=== PATIENT | male | born 1935 | race Caucasian/White ===

== ENCOUNTER 2022-06-13 20:16 | Inpatient (IN) | payer OTHER ==
[~2022-06-13] VITALS: Ht 175.3 cm; Wt 60.8 kg
[2022-06-13 20:21] VITALS: BP_SYST 132
[2022-06-13 21:05] LABS: WHITE BLOOD COUNT (AUTO) 2.5 K/uL (4.8-10.8)
[2022-06-13 21:13] LABS: HEMOGLOBIN 7.6 g/dL (14.0-18.0); MEAN CORPUSCULAR HEMOGLOBIN 34 pg (27-31); MEAN CORPUSCULAR HGB CONC 35 % (32-36); MEAN CORPUSCULAR VOLUME 97 fL (79.0-98.0); PLATELET COUNT (AUTO) 192 K/uL (130-430); RED BLOOD CELL COUNT(AUTO) 2.28 MIL/uL (4.2-6.2); RED CELL DISTRIBUTION WIDTH 21.7 % (9.0-15.0)
[2022-06-13 21:33] LABS: ANION GAP 8 (5-15); CALCIUM 9.1 mg/dL (8.4-11.0); CHLORIDE 99 mmol/L (98-107); CREATININE 0.94 mg/dL (0.55-1.30); GLUCOSE 146 mg/dL (70-99); UREA NITROGEN, BLOOD 24 mg/dL (8-21)
[2022-06-13 21:45] LABS: ALANINE AMINOTRANSFERASE 29 U/L (12-78); ALBUMIN 2.3 g/dL (3.4-4.8); ASPARTATE AMINOTRANSFERASE 49 U/L (10-37); TOTAL BILIRUBIN 1.4 mg/dL (0.0-1.0)
[2022-06-13] MEDS ORDERED: iohexoL 350 mgI/mL, 100 ML INFUS..BTL IV ONE (21:58)
[2022-06-13] MEDS ORDERED: PIPERACILLIN/TAZO 3.375 GM in NS 50 ML IV ONE (22:00)
[2022-06-13 22:01] LABS: C-REACTIVE PROTEIN QUANT 32.2 mg/dL (0-0.5)
[2022-06-13] MEDS ORDERED: PIPERACILLIN/TAZOBACTAM 3.375 GM/VIAL (ZOSYN) IV ONE (22:11)
[2022-06-13 22:23] LABS: BAND % (MANUAL) 19 % (0-6); BASOPHILS % (MANUAL) 0 % (0-2); EOSINOPHILS % (MANUAL) 0 % (0-7); LYMPHOCYTES % (MANUAL) 11 % (20-46); MONOCYTES % (MANUAL) 14 % (0-11)
[2022-06-13] MEDS ORDERED: IPRATROPIUM/ALBUTEROL SULFATE 3 ML AMPUL.NEB (DUONEB) INH SCH (23:15)
[2022-06-13] MEDS ORDERED: ONDANSETRON HCL 4 MG/2 ML VIAL IVP PRN (23:15)
[2022-06-13] MEDS ORDERED: ACETAMINOPHEN 325 MG TABLET PO PRN (23:15)
[2022-06-13] MEDS ORDERED: IPRATROPIUM/ALBUTEROL SULFATE 3 ML AMPUL.NEB (DUONEB) INH PRN (23:15)
[2022-06-13] MEDS ORDERED: ACYC400T19 PO (23:25)
[2022-06-13] MEDS ORDERED: LEVO137T2 PO (23:25)
[2022-06-13] MEDS ORDERED: AMIO200T61 PO (23:25)
[2022-06-13] MEDS ORDERED: METO25TA6 PO (23:25)
[2022-06-13] MEDS ORDERED: RIVA20TA PO (23:26)
[2022-06-13] MEDS ORDERED: LETE480T PO (23:27)
[2022-06-13] MEDS ORDERED: METO25TA3 PO (23:28)
[2022-06-13 23:30] VITALS: BP_SYST 130
[2022-06-14] VITALS (8 sets, daily range): BP systolic 105–125
[2022-06-14] MEDS ORDERED: PIPERACILLIN/TAZO 4.5 GM in NS 100 ML IV SCH (06:00)
[2022-06-14 08:28] LABS: MEAN CORPUSCULAR HEMOGLOBIN 33 pg (27-31); MEAN CORPUSCULAR HGB CONC 34 % (32-36); MEAN CORPUSCULAR VOLUME 97 fL (79.0-98.0); PLATELET COUNT (AUTO) 163 K/uL (130-430); WHITE BLOOD COUNT (AUTO) 2.2 K/uL (4.8-10.8)
[2022-06-14 08:58] LABS: ALANINE AMINOTRANSFERASE 24 U/L (12-78); ANION GAP 11 (5-15); ASPARTATE AMINOTRANSFERASE 34 U/L (10-37); CALCIUM 7.9 mg/dL (8.4-11.0); CHLORIDE 99 mmol/L (98-107); CREATININE 0.84 mg/dL (0.55-1.30); GLUCOSE 126 mg/dL (70-99); TOTAL BILIRUBIN 1.6 mg/dL (0.0-1.0); UREA NITROGEN, BLOOD 24 mg/dL (8-21)
[2022-06-14] MEDS ORDERED: CHOLECALCIFEROL (VITAMIN D3) 2,000 UNIT TABLET PO SCH (09:00)
[2022-06-14] MEDS ORDERED: ENOXAPARIN SODIUM 40 MG/0.4 ML SYRINGE SUBCUT SCH (09:00)
[2022-06-14] MEDS ORDERED: ASCORBIC ACID 500 MG TABLET PO SCH (09:00)
[2022-06-14] MEDS: PIPERACILLIN/TAZO 4.5 GM in NS 100 ML IV SCH ×3 (09:19→23:14)
[2022-06-14] MEDS: DEXAMETHASONE SOD PHOSPHATE 4 MG/ML VIAL IVP SCH (09:31)
[2022-06-14] MEDS: CHOLECALCIFEROL (VITAMIN D3) 2,000 UNIT TABLET PO SCH (09:31)
[2022-06-14] MEDS: ASCORBIC ACID 500 MG TABLET PO SCH ×2 (09:32→23:13)
[2022-06-14 09:36] LABS: C-REACTIVE PROTEIN QUANT 28.8 mg/dL (0-0.5); RED BLOOD CELL COUNT(AUTO) 1.97 MIL/uL (4.2-6.2)
[2022-06-14 09:38] LABS: HEMOGLOBIN 6.4 g/dL (14.0-18.0)
[2022-06-14 09:39] LABS: HEMATOCRIT 19.2 % (36-54)
[2022-06-14 12:48] LABS: BAND % (MANUAL) 6 % (0-6); BASOPHILS % (MANUAL) 0 % (0-2); EOSINOPHILS % (MANUAL) 1 % (0-7); LYMPHOCYTES % (MANUAL) 23 % (20-46); MONOCYTES % (MANUAL) 16 % (0-11)
[2022-06-15] MEDS: LEVOTHYROXINE SODIUM 0.137 MG TABLET PO SCH (07:00)
[2022-06-15] MEDS: PIPERACILLIN/TAZO 4.5 GM in NS 100 ML IV SCH ×3 (07:28→22:37)
[2022-06-15 08:00] VITALS: BP_SYST 118
[2022-06-15] MEDS ORDERED: METOPROLOL SUCCINATE 25 MG TAB.SR.24H (TOPROL XL) PO SCH (09:00)
[2022-06-15] MEDS: RIVAROXABAN 10 MG TABLET PO SCH (09:00)
[2022-06-15] MEDS: AMIODARONE HCL 200 MG TABLET PO SCH (09:00)
[2022-06-15] MEDS: ASCORBIC ACID 500 MG TABLET PO SCH ×2 (09:00→22:37)
[2022-06-15] MEDS: ACYCLOVIR 400 MG TABLET PO SCH ×2 (09:00→22:35)
[2022-06-15] MEDS: METOPROLOL TARTRATE 25 MG TABLET PO SCH ×2 (09:00→22:37)
[2022-06-15] MEDS: CHOLECALCIFEROL (VITAMIN D3) 2,000 UNIT TABLET PO SCH (09:00)
[2022-06-15 09:05] LABS: BILIRUBIN,URINE NEGATIVE (NEGATIVE); BLOOD, URINE NEGATIVE (NEGATIVE); CLARITY/URINE CLEAR (CLEAR); COLOR,URINE YELLOW (YELLOW); GLUCOSE,URINE NEGATIVE (NEGATIVE); KETONES,URINE TRACE (NEGATIVE); LEUKOCYTE ESTERASE ,URINE NEGATIVE (NEGATIVE); NITRITE, URINE NEGATIVE (NEGATIVE); PROTEIN URINE NEGATIVE (NEGATIVE); UROBILINOGEN,URINE 0.2 (0.2-1.0)
[2022-06-15] MEDS: DEXAMETHASONE SOD PHOSPHATE 4 MG/ML VIAL IVP SCH (10:49)
[2022-06-15 11:19] LABS: HEMATOCRIT 32.7 % (36-54); HEMOGLOBIN 11.2 g/dL (14.0-18.0); MEAN CORPUSCULAR HEMOGLOBIN 32 pg (27-31); MEAN CORPUSCULAR HGB CONC 34 % (32-36); MEAN CORPUSCULAR VOLUME 95 fL (79.0-98.0); PLATELET COUNT (AUTO) 164 K/uL (130-430); RED BLOOD CELL COUNT(AUTO) 3.46 MIL/uL (4.2-6.2); RETICULOCYTE COUNT 0.8 % (0.5-1.5)
[2022-06-15 11:36] VITALS: BP_SYST 102
[2022-06-15 11:39] LABS: ALANINE AMINOTRANSFERASE 21 U/L (12-78); ANION GAP 10 (5-15); ASPARTATE AMINOTRANSFERASE 18 U/L (10-37); CALCIUM 8.9 mg/dL (8.4-11.0); CHLORIDE 102 mmol/L (98-107); CREATININE 0.99 mg/dL (0.55-1.30); GLUCOSE 136 mg/dL (70-99); TOTAL BILIRUBIN 1.9 mg/dL (0.0-1.0); UREA NITROGEN, BLOOD 29 mg/dL (8-21)
[2022-06-15 12:05] LABS: TOTAL IRON BIND. CAPACITY 105 ug/dL (250-450)
[2022-06-15 15:21] LABS: BAND % (MANUAL) 6 % (0-6); BASOPHILS % (MANUAL) 0 % (0-2); EOSINOPHILS % (MANUAL) 1 % (0-7); LYMPHOCYTES % (MANUAL) 27 % (20-46); MONOCYTES % (MANUAL) 17 % (0-11)
[2022-06-15 16:44] VITALS: BP_SYST 99
[2022-06-15 20:20] VITALS: BP_SYST 95
[2022-06-16] VITALS: BP_SYST 98
[2022-06-16] MEDS: PIPERACILLIN/TAZO 4.5 GM in NS 100 ML IV SCH ×3 (05:46→23:15)
[2022-06-16 08:00] VITALS: BP_SYST 105
[2022-06-16 08:30] LABS: ALANINE AMINOTRANSFERASE 19 U/L (12-78); ALBUMIN 1.9 g/dL (3.4-4.8); ANION GAP 12 (5-15); ASPARTATE AMINOTRANSFERASE 14 U/L (10-37); CALCIUM 8.4 mg/dL (8.4-11.0); CHLORIDE 104 mmol/L (98-107); CREATININE 0.92 mg/dL (0.55-1.30); GLUCOSE 134 mg/dL (70-99); TOTAL BILIRUBIN 1.3 mg/dL (0.0-1.0); UREA NITROGEN, BLOOD 38 mg/dL (8-21)
[2022-06-16] MEDS: ASCORBIC ACID 500 MG TABLET PO SCH ×2 (08:30→22:12)
[2022-06-16] MEDS: AMIODARONE HCL 200 MG TABLET PO SCH (08:30)
[2022-06-16] MEDS: DEXAMETHASONE SOD PHOSPHATE 4 MG/ML VIAL IVP SCH (08:30)
[2022-06-16] MEDS: ACYCLOVIR 400 MG TABLET PO SCH ×2 (08:30→22:12)
[2022-06-16] MEDS: METOPROLOL TARTRATE 25 MG TABLET PO SCH ×2 (08:31→21:00)
[2022-06-16] MEDS: CHOLECALCIFEROL (VITAMIN D3) 2,000 UNIT TABLET PO SCH (08:31)
[2022-06-16] MEDS: RIVAROXABAN 10 MG TABLET PO SCH (08:32)
[2022-06-16] MEDS: LEVOTHYROXINE SODIUM 0.137 MG TABLET PO SCH (08:32)
[2022-06-16 11:31] VITALS: BP_SYST 104
[2022-06-16 13:40] LABS: HEMATOCRIT 32.1 % (36-54); MEAN CORPUSCULAR HEMOGLOBIN 32 pg (27-31); MEAN CORPUSCULAR HGB CONC 34 % (32-36); MEAN CORPUSCULAR VOLUME 94 fL (79.0-98.0); PLATELET COUNT (AUTO) 157 K/uL (130-430); RED CELL DISTRIBUTION WIDTH 20.5 % (9.0-15.0); WHITE BLOOD COUNT (AUTO) 2.1 K/uL (4.8-10.8)
[2022-06-16 14:32] LABS: ALANINE AMINOTRANSFERASE 20 U/L (12-78); ANION GAP 8 (5-15); ASPARTATE AMINOTRANSFERASE 18 U/L (10-37); C-REACTIVE PROTEIN QUANT 12.2 mg/dL (0-0.5); CALCIUM 8.7 mg/dL (8.4-11.0); CHLORIDE 105 mmol/L (98-107); GLUCOSE 153 mg/dL (70-99); TOTAL BILIRUBIN 1.2 mg/dL (0.0-1.0); UREA NITROGEN, BLOOD 41 mg/dL (8-21)
[2022-06-16 15:27] LABS: BAND % (MANUAL) 9 % (0-6); BASOPHILS % (MANUAL) 0 % (0-2); EOSINOPHILS % (MANUAL) 0 % (0-7); LYMPHOCYTES % (MANUAL) 14 % (20-46); MONOCYTES % (MANUAL) 15 % (0-11)
[2022-06-16 16:12] VITALS: BP_SYST 101
[2022-06-16 20:47] VITALS: BP_SYST 111
[2022-06-17 01:23] VITALS: BP_SYST 94
[2022-06-17] MEDS: PIPERACILLIN/TAZO 4.5 GM in NS 100 ML IV SCH ×3 (06:18→22:17)
[2022-06-17] MEDS: LEVOTHYROXINE SODIUM 0.137 MG TABLET PO SCH (06:18)
[2022-06-17 07:06] LABS: FOLATE (FOLIC ACID) 14.3 ng/mL (>3.0)
[2022-06-17 08:00] VITALS: BP_SYST 110
[2022-06-17 09:17] LABS: ALANINE AMINOTRANSFERASE 18 U/L (12-78); ANION GAP 9 (5-15); ASPARTATE AMINOTRANSFERASE 17 U/L (10-37); CALCIUM 8.5 mg/dL (8.4-11.0); CHLORIDE 108 mmol/L (98-107); CREATININE 0.92 mg/dL (0.55-1.30); GLUCOSE 110 mg/dL (70-99); TOTAL BILIRUBIN 1.2 mg/dL (0.0-1.0); UREA NITROGEN, BLOOD 35 mg/dL (8-21)
[2022-06-17] MEDS: DEXAMETHASONE SOD PHOSPHATE 4 MG/ML VIAL IVP SCH (11:15)
[2022-06-17] MEDS: ASCORBIC ACID 500 MG TABLET PO SCH ×2 (11:16→22:16)
[2022-06-17] MEDS: CHOLECALCIFEROL (VITAMIN D3) 2,000 UNIT TABLET PO SCH (11:16)
[2022-06-17] MEDS: AMIODARONE HCL 200 MG TABLET PO SCH (11:16)
[2022-06-17] MEDS: METOPROLOL TARTRATE 25 MG TABLET PO SCH ×2 (11:16→22:19)
[2022-06-17] MEDS: ACYCLOVIR 400 MG TABLET PO SCH ×2 (11:17→22:16)
[2022-06-17] MEDS: RIVAROXABAN 10 MG TABLET PO SCH (11:36)
[2022-06-17 12:00] VITALS: BP_SYST 107
[2022-06-17 12:02] LABS: FERRITIN 8107 ng/mL (30-400)
[2022-06-17 16:00] VITALS: BP_SYST 92
[2022-06-17] MEDS ORDERED: POTASSIUM CHLORIDE 20 MEQ TAB.PRT.SR PO ONE (18:45)
[2022-06-17 19:00] VITALS: BP_SYST 117
[2022-06-17 20:00] VITALS: BP_SYST 117
[2022-06-18 00:57] VITALS: BP_SYST 123
[2022-06-18] MEDS: LEVOTHYROXINE SODIUM 0.137 MG TABLET PO SCH (06:10)
[2022-06-18] MEDS: PIPERACILLIN/TAZO 4.5 GM in NS 100 ML IV SCH (06:10)
[2022-06-18 08:00] VITALS: BP_SYST 125
[2022-06-18] MEDS: DEXAMETHASONE SOD PHOSPHATE 4 MG/ML VIAL IVP SCH (08:53)
[2022-06-18] MEDS: ASCORBIC ACID 500 MG TABLET PO SCH ×2 (08:54→21:04)
[2022-06-18] MEDS: ACYCLOVIR 400 MG TABLET PO SCH ×2 (08:54→21:05)
[2022-06-18] MEDS: RIVAROXABAN 10 MG TABLET PO SCH (08:54)
[2022-06-18] MEDS: CHOLECALCIFEROL (VITAMIN D3) 2,000 UNIT TABLET PO SCH (08:54)
[2022-06-18] MEDS: AMIODARONE HCL 200 MG TABLET PO SCH (08:56)
[2022-06-18] MEDS: METOPROLOL TARTRATE 25 MG TABLET PO SCH ×2 (08:56→21:05)
[2022-06-18 09:19] LABS: ALANINE AMINOTRANSFERASE 16 U/L (12-78); ALBUMIN 2.1 g/dL (3.4-4.8); ANION GAP 9 (5-15); ASPARTATE AMINOTRANSFERASE 17 U/L (10-37); CALCIUM 8.6 mg/dL (8.4-11.0); CHLORIDE 109 mmol/L (98-107); CREATININE 0.88 mg/dL (0.55-1.30); GLUCOSE 108 mg/dL (70-99); TOTAL BILIRUBIN 1.2 mg/dL (0.0-1.0); UREA NITROGEN, BLOOD 34 mg/dL (8-21)
[2022-06-18 11:51] LABS: HEMATOCRIT 33.2 % (36-54); HEMOGLOBIN 10.9 g/dL (14.0-18.0); MEAN CORPUSCULAR HEMOGLOBIN 32 pg (27-31); MEAN CORPUSCULAR HGB CONC 33 % (32-36); MEAN CORPUSCULAR VOLUME 97 fL (79.0-98.0); PLATELET COUNT (AUTO) 135 K/uL (130-430); RED BLOOD CELL COUNT(AUTO) 3.43 MIL/uL (4.2-6.2); RED CELL DISTRIBUTION WIDTH 20.9 % (9.0-15.0)
[2022-06-18 12:35] LABS: WHITE BLOOD COUNT (AUTO) 1.8 K/uL (4.8-10.8)
[2022-06-18] MEDS: cefTRIAXone 1 GM in D5W 50 ML IV SCH (12:48)
[2022-06-18 13:49] VITALS: BP_SYST 117
[2022-06-18 14:51] LABS: BAND % (MANUAL) 2 % (0-6); BASOPHILS % (MANUAL) 0 % (0-2); EOSINOPHILS % (MANUAL) 0 % (0-7); LYMPHOCYTES % (MANUAL) 27 % (20-46); MONOCYTES % (MANUAL) 19 % (0-11)
[2022-06-18 18:29] VITALS: BP_SYST 104
[2022-06-18 21:00] VITALS: BP_SYST 119
[2022-06-19 00:45] VITALS: BP_SYST 121
[2022-06-19] MEDS: LEVOTHYROXINE SODIUM 0.137 MG TABLET PO SCH (06:50)
[2022-06-19] MEDS: CHOLECALCIFEROL (VITAMIN D3) 2,000 UNIT TABLET PO SCH (08:58)
[2022-06-19] MEDS: RIVAROXABAN 10 MG TABLET PO SCH (08:58)
[2022-06-19] MEDS: ACYCLOVIR 400 MG TABLET PO SCH (08:58)
[2022-06-19] MEDS: ASCORBIC ACID 500 MG TABLET PO SCH (08:59)
[2022-06-19] MEDS: AMIODARONE HCL 200 MG TABLET PO SCH (08:59)
[2022-06-19] MEDS: METOPROLOL TARTRATE 25 MG TABLET PO SCH (09:00)
[2022-06-19] MEDS: DEXAMETHASONE SOD PHOSPHATE 4 MG/ML VIAL IVP SCH (09:42)
[2022-06-19 11:15] VITALS: BP_SYST 106
[2022-06-19] MEDS: cefTRIAXone 1 GM in D5W 50 ML IV SCH (12:20)
[2022-06-19 15:59] VITALS: BP_SYST 110
[2022-06-20] MEDS: ASCORBIC ACID 500 MG TABLET PO SCH ×3 (00:55→20:58)
[2022-06-20] MEDS: METOPROLOL TARTRATE 25 MG TABLET PO SCH ×3 (00:56→20:58)
[2022-06-20] MEDS: ACYCLOVIR 400 MG TABLET PO SCH ×3 (00:56→20:58)
[2022-06-20] MEDS: LEVOTHYROXINE SODIUM 0.137 MG TABLET PO SCH (07:38)
[2022-06-20 08:01] VITALS: BP_SYST 112
[2022-06-20] MEDS: CHOLECALCIFEROL (VITAMIN D3) 2,000 UNIT TABLET PO SCH (08:49)
[2022-06-20] MEDS: AMIODARONE HCL 200 MG TABLET PO SCH (08:49)
[2022-06-20] MEDS: DEXAMETHASONE SOD PHOSPHATE 4 MG/ML VIAL IVP SCH (08:52)
[2022-06-20] MEDS: RIVAROXABAN 10 MG TABLET PO SCH (08:54)
[2022-06-20 12:08] VITALS: BP_SYST 114
[2022-06-20] MEDS: cefTRIAXone 1 GM in D5W 50 ML IV SCH (13:09)
[2022-06-20 16:31] VITALS: BP_SYST 116
[2022-06-20 19:20] VITALS: BP_SYST 92
[2022-06-21 00:26] VITALS: BP_SYST 99
[2022-06-21] MEDS: LEVOTHYROXINE SODIUM 0.137 MG TABLET PO SCH (06:01)
[2022-06-21 07:25] LABS: HEMATOCRIT 34.2 % (36-54); HEMOGLOBIN 11.2 g/dL (14.0-18.0); MEAN CORPUSCULAR HEMOGLOBIN 31 pg (27-31); MEAN CORPUSCULAR HGB CONC 33 % (32-36); MEAN CORPUSCULAR VOLUME 95 fL (79.0-98.0); PLATELET COUNT (AUTO) 115 K/uL (130-430); RED CELL DISTRIBUTION WIDTH 20.7 % (9.0-15.0); WHITE BLOOD COUNT (AUTO) 2.9 K/uL (4.8-10.8)
[2022-06-21 08:00] VITALS: BP_SYST 95
[2022-06-21] MEDS: METOPROLOL TARTRATE 25 MG TABLET PO SCH ×2 (09:00→20:20)
[2022-06-21] MEDS: AMIODARONE HCL 200 MG TABLET PO SCH (09:00)
[2022-06-21] MEDS: ACYCLOVIR 400 MG TABLET PO SCH (09:43)
[2022-06-21] MEDS: ASCORBIC ACID 500 MG TABLET PO SCH ×2 (09:43→20:19)
[2022-06-21] MEDS: RIVAROXABAN 10 MG TABLET PO SCH (09:44)
[2022-06-21] MEDS: DEXAMETHASONE SOD PHOSPHATE 4 MG/ML VIAL IVP SCH (09:45)
[2022-06-21] MEDS: CHOLECALCIFEROL (VITAMIN D3) 2,000 UNIT TABLET PO SCH (09:45)
[2022-06-21 10:28] LABS: BAND % (MANUAL) 5 % (0-6); LYMPHOCYTES % (MANUAL) 27 % (20-46)
[2022-06-21 10:29] LABS: BASOPHILS % (MANUAL) 0 % (0-2); EOSINOPHILS % (MANUAL) 3 % (0-7); METAMYELOCYTES % 1 % (0-0); MONOCYTES % (MANUAL) 8 % (0-11)
[2022-06-21 11:56] VITALS: BP_SYST 101
[2022-06-21] MEDS: cefTRIAXone 1 GM in D5W 50 ML IV SCH (12:48)
[2022-06-21 17:28] VITALS: BP_SYST 103
[2022-06-21 19:10] VITALS: BP_SYST 127
[2022-06-22] VITALS: BP_SYST 110
[2022-06-22] MEDS: LEVOTHYROXINE SODIUM 0.137 MG TABLET PO SCH (06:22)
[2022-06-22] MEDS: CHOLECALCIFEROL (VITAMIN D3) 2,000 UNIT TABLET PO SCH (08:44)
[2022-06-22] MEDS: ASCORBIC ACID 500 MG TABLET PO SCH ×2 (08:44→21:02)
[2022-06-22] MEDS: METOPROLOL TARTRATE 25 MG TABLET PO SCH ×2 (08:44→21:00)
[2022-06-22] MEDS: DEXAMETHASONE SOD PHOSPHATE 4 MG/ML VIAL IVP SCH (08:45)
[2022-06-22] MEDS: AMIODARONE HCL 200 MG TABLET PO SCH (08:45)
[2022-06-22 12:00] VITALS: BP_SYST 93
[2022-06-22] MEDS: RIVAROXABAN 10 MG TABLET PO SCH (13:36)
[2022-06-22] MEDS: cefTRIAXone 1 GM in D5W 50 ML IV SCH (13:43)
[2022-06-22 16:40] VITALS: BP_SYST 135
[2022-06-22 19:15] VITALS: BP_SYST 110
[2022-06-23 00:30] VITALS: BP_SYST 130
[2022-06-23] MEDS: LEVOTHYROXINE SODIUM 0.137 MG TABLET PO SCH (06:36)
[2022-06-23] MEDS: RIVAROXABAN 10 MG TABLET PO SCH (09:12)
[2022-06-23] MEDS: ASCORBIC ACID 500 MG TABLET PO SCH ×2 (09:13→21:48)
[2022-06-23] MEDS: AMIODARONE HCL 200 MG TABLET PO SCH (09:13)
[2022-06-23] MEDS: CHOLECALCIFEROL (VITAMIN D3) 2,000 UNIT TABLET PO SCH (09:14)
[2022-06-23] MEDS: METOPROLOL TARTRATE 25 MG TABLET PO SCH ×2 (09:14→21:00)
[2022-06-23] MEDS: DEXAMETHASONE SOD PHOSPHATE 4 MG/ML VIAL IVP SCH (09:14)
[2022-06-23] MEDS: cefTRIAXone 1 GM in D5W 50 ML IV SCH (09:16)
[2022-06-23 09:35] LABS: BASOPHILS # (AUTO) 0.1 K/uL (0.0-0.2); BASOPHILS % (AUTO) 1.3 % (0.0-2.0); EOSINOPHILS % (AUTO) 0.9 % (0.0-4.0); HEMATOCRIT 35.9 % (36-54); HEMOGLOBIN 11.7 g/dL (14.0-18.0); LYMPHOCYTES # (AUTO) 0.4 K/uL (1.0-5.5); LYMPHOCYTES % (AUTO) 9.7 % (20.5-51.5); MEAN CORPUSCULAR HEMOGLOBIN 32 pg (27-31); MEAN CORPUSCULAR HGB CONC 33 % (32-36); MEAN CORPUSCULAR VOLUME 96 fL (79.0-98.0); MONOCYTES # (AUTO) 0.4 K/uL (0.0-1.0); NEUTROPHILS # (AUTO) 3.6 K/uL (1.8-7.7); PLATELET COUNT (AUTO) 123 K/uL (130-430); RED BLOOD CELL COUNT(AUTO) 3.73 MIL/uL (4.2-6.2); RED CELL DISTRIBUTION WIDTH 20.5 % (9.0-15.0); WHITE BLOOD COUNT (AUTO) 4.5 K/uL (4.8-10.8)
[2022-06-23 09:52] LABS: NEUTROPHILS % (AUTO) 79.1 % (40.0-70.0)
[2022-06-23 11:13] VITALS: BP_SYST 122
[2022-06-23 16:53] VITALS: BP_SYST 128
[2022-06-23 20:00] VITALS: BP_SYST 101
[2022-06-24 01:52] VITALS: BP_SYST 153
[2022-06-24] MEDS: LEVOTHYROXINE SODIUM 0.137 MG TABLET PO SCH (06:22)
[2022-06-24 08:00] VITALS: BP_SYST 100
[2022-06-24] MEDS: CHOLECALCIFEROL (VITAMIN D3) 2,000 UNIT TABLET PO SCH (10:36)
[2022-06-24] MEDS: DEXAMETHASONE SOD PHOSPHATE 4 MG/ML VIAL IVP SCH (10:36)
[2022-06-24] MEDS: AMIODARONE HCL 200 MG TABLET PO SCH (10:37)
[2022-06-24] MEDS: METOPROLOL TARTRATE 25 MG TABLET PO SCH ×2 (10:37→20:05)
[2022-06-24] MEDS: ASCORBIC ACID 500 MG TABLET PO SCH ×2 (10:37→20:05)
[2022-06-24] MEDS: cefTRIAXone 1 GM in D5W 50 ML IV SCH (10:38)
[2022-06-24] MEDS: RIVAROXABAN 10 MG TABLET PO SCH (10:41)
[2022-06-24 13:08] VITALS: BP_SYST 142
[2022-06-24 16:54] VITALS: BP_SYST 124
[2022-06-24 20:00] VITALS: BP_SYST 93
[2022-06-25 01:04] VITALS: BP_SYST 92
[2022-06-25 05:20] VITALS: BP_SYST 106
[2022-06-25] MEDS: LEVOTHYROXINE SODIUM 0.137 MG TABLET PO SCH (06:06)
[2022-06-25 08:00] VITALS: BP_SYST 116
[2022-06-25 08:08] LABS: BASOPHILS % (AUTO) 0.7 % (0.0-2.0); EOSINOPHILS % (AUTO) 0.4 % (0.0-4.0); HEMATOCRIT 37.3 % (36-54); HEMOGLOBIN 12.3 g/dL (14.0-18.0); LYMPHOCYTES # (AUTO) 0.6 K/uL (1.0-5.5); LYMPHOCYTES % (AUTO) 9.5 % (20.5-51.5); MEAN CORPUSCULAR HEMOGLOBIN 32 pg (27-31); MEAN CORPUSCULAR HGB CONC 33 % (32-36); MEAN CORPUSCULAR VOLUME 96 fL (79.0-98.0); MONOCYTES # (AUTO) 0.4 K/uL (0.0-1.0); MONOCYTES % (AUTO) 5.7 % (1.7-9.3); NEUTROPHILS # (AUTO) 5.4 K/uL (1.8-7.7); NEUTROPHILS % (AUTO) 83.7 % (40.0-70.0); PLATELET COUNT (AUTO) 135 K/uL (130-430); RED BLOOD CELL COUNT(AUTO) 3.88 MIL/uL (4.2-6.2); RED CELL DISTRIBUTION WIDTH 20.7 % (9.0-15.0); WHITE BLOOD COUNT (AUTO) 6.4 K/uL (4.8-10.8)
[2022-06-25] MEDS: AMIODARONE HCL 200 MG TABLET PO SCH (08:37)
[2022-06-25] MEDS: CHOLECALCIFEROL (VITAMIN D3) 2,000 UNIT TABLET PO SCH (08:37)
[2022-06-25] MEDS: ASCORBIC ACID 500 MG TABLET PO SCH ×2 (08:38→20:57)
[2022-06-25] MEDS: DEXAMETHASONE SOD PHOSPHATE 4 MG/ML VIAL IVP SCH (08:38)
[2022-06-25] MEDS: METOPROLOL TARTRATE 25 MG TABLET PO SCH ×2 (08:38→20:57)
[2022-06-25] MEDS: RIVAROXABAN 10 MG TABLET PO SCH (08:39)
[2022-06-25 08:54] LABS: ALANINE AMINOTRANSFERASE 15 U/L (12-78); ALBUMIN 2.1 g/dL (3.4-4.8); ANION GAP 7 (5-15); ASPARTATE AMINOTRANSFERASE 26 U/L (10-37); CALCIUM 8.3 mg/dL (8.4-11.0); CHLORIDE 103 mmol/L (98-107); GLUCOSE 97 mg/dL (70-99); TOTAL BILIRUBIN 0.8 mg/dL (0.0-1.0); UREA NITROGEN, BLOOD 23 mg/dL (8-21)
[2022-06-25 11:57] VITALS: BP_SYST 97
[2022-06-25 16:26] VITALS: BP_SYST 94
[2022-06-25 20:00] VITALS: BP_SYST 104
[2022-06-26] VITALS: BP_SYST 110
[2022-06-26 04:00] VITALS: BP_SYST 108
[2022-06-26] MEDS: LEVOTHYROXINE SODIUM 0.137 MG TABLET PO SCH (06:48)
[2022-06-26 08:40] VITALS: BP_SYST 99
[2022-06-26] MEDS: AMIODARONE HCL 200 MG TABLET PO SCH (09:23)
[2022-06-26] MEDS: CHOLECALCIFEROL (VITAMIN D3) 2,000 UNIT TABLET PO SCH (09:23)
[2022-06-26] MEDS: DEXAMETHASONE SOD PHOSPHATE 4 MG/ML VIAL IVP SCH (09:23)
[2022-06-26] MEDS: METOPROLOL TARTRATE 25 MG TABLET PO SCH ×2 (09:23→21:22)
[2022-06-26] MEDS: ASCORBIC ACID 500 MG TABLET PO SCH ×2 (09:24→21:22)
[2022-06-26] MEDS: RIVAROXABAN 10 MG TABLET PO SCH (09:24)
[2022-06-26 11:30] VITALS: BP_SYST 118
[2022-06-26 16:30] VITALS: BP_SYST 100
[2022-06-26 20:00] VITALS: BP_SYST 101
[2022-06-27] VITALS: BP_SYST 96
[2022-06-27] MEDS: LEVOTHYROXINE SODIUM 0.137 MG TABLET PO SCH (06:30)
[2022-06-27 07:36] VITALS: BP_SYST 97
[2022-06-27 07:39] LABS: BASOPHILS % (AUTO) 0.7 % (0.0-2.0); EOSINOPHILS % (AUTO) 0.2 % (0.0-4.0); HEMATOCRIT 35.5 % (36-54); HEMOGLOBIN 11.6 g/dL (14.0-18.0); LYMPHOCYTES # (AUTO) 0.4 K/uL (1.0-5.5); LYMPHOCYTES % (AUTO) 10.8 % (20.5-51.5); MEAN CORPUSCULAR HEMOGLOBIN 31 pg (27-31); MEAN CORPUSCULAR HGB CONC 33 % (32-36); MEAN CORPUSCULAR VOLUME 95 fL (79.0-98.0); MONOCYTES # (AUTO) 0.5 K/uL (0.0-1.0); MONOCYTES % (AUTO) 12.4 % (1.7-9.3); NEUTROPHILS % (AUTO) 75.9 % (40.0-70.0); PLATELET COUNT (AUTO) 144 K/uL (130-430); RED BLOOD CELL COUNT(AUTO) 3.75 MIL/uL (4.2-6.2); RED CELL DISTRIBUTION WIDTH 20.1 % (9.0-15.0)
[2022-06-27 07:47] LABS: WHITE BLOOD COUNT (AUTO) 3.9 K/uL (4.8-10.8)
[2022-06-27] MEDS: DEXAMETHASONE SOD PHOSPHATE 4 MG/ML VIAL IVP SCH (09:51)
[2022-06-27] MEDS: RIVAROXABAN 10 MG TABLET PO SCH (09:53)
[2022-06-27] MEDS: ASCORBIC ACID 500 MG TABLET PO SCH ×2 (09:53→21:34)
[2022-06-27] MEDS: AMIODARONE HCL 200 MG TABLET PO SCH (09:53)
[2022-06-27] MEDS: METOPROLOL TARTRATE 25 MG TABLET PO SCH ×2 (09:54→21:00)
[2022-06-27] MEDS: CHOLECALCIFEROL (VITAMIN D3) 2,000 UNIT TABLET PO SCH (09:54)
[2022-06-27 11:45] VITALS: BP_SYST 105; BP_SYST 51
[2022-06-27] MEDS ORDERED: guaiFENesin/DEXTROMETHORPHAN 10 ML UDC PO PRN (14:30)
[2022-06-27] MEDS ORDERED: BENZONATATE 100 MG CAPSULE (TESSALON) PO PRN (14:30)
[2022-06-27 15:50] VITALS: BP_SYST 92
[2022-06-27 20:00] VITALS: BP_SYST 107
== END 2022-06-27 22:15 | disposition short-term general hospital (02) | DRG 177 ==
LOC: SED 20:16 → STU 23:59 → SMU 06-19 22:35
PROVIDERS: ADMIT Internal Medicine Critical Care Medicine; ATTEND Internal Medicine Critical Care Medicine
PROC: XW033E5 Introduction of Remdesivir Anti-infective into Peripheral Vein, Percutaneous Approach, New Technology Group 5 (ICD-10-PCS; 2022-06-13)
PROC: 30233N1 Transfusion of Nonautologous Red Blood Cells into Peripheral Vein, Percutaneous Approach (ICD-10-PCS; principal; 2022-06-14)
DX: U07.1 COVID-19 (principal); J12.82 Pneumonia due to coronavirus disease 2019; J96.01 Acute respiratory failure with hypoxia; R65.11 Systemic inflammatory response syndrome (SIRS) of non-infectious origin with acute organ dysfunction; C85.10 Unspecified B-cell lymphoma, unspecified site; I48.91 Unspecified atrial fibrillation; E03.9 Hypothyroidism, unspecified; I10 Essential (primary) hypertension; D64.9 Anemia, unspecified; F03.90 Unspecified dementia, unspecified severity, without behavioral disturbance, psychotic disturbance, mood disturbance, and anxiety; Z86.73 Personal history of transient ischemic attack (TIA), and cerebral infarction without residual deficits
CPT/HCPCS: 36415; 71045; 71275; 76376; 76700-TC; 80053; 81003; 82272; 82607; 82728; 82746; 83540; 83550; 83605; 83880; 85007; 85025; 85027; 85044; 85379; 86140; 86886; 86900; 86901; 86920; 87081; 93005; 94760; 96365; 96368; 96372; 96375; 99285; G0378; J0696; J1100; J1650; J1956; J2543; J7040; J7050; J7060; P9021; Q9967